=== PATIENT | male | born 1995 | race Asian ===

== ENCOUNTER 2023-08-27 01:54 | Emergency (ER) | payer BC ==
[~2023-08-27] VITALS: Ht 170.2 cm; Wt 76.6 kg
[2023-08-27 02:07] VITALS: O2SAT 96
[2023-08-27] MEDS ORDERED: DOXY100C5 MT (02:31)
[2023-08-27] MEDS: ACETAMINOPHEN 325MG TABLET PO ONE (02:50)
[2023-08-27 03:21] VITALS: BP 128/74; PULSE 90; RESP 18; TEMP 100.9
== END 2023-08-27 03:40 | disposition home or self-care (01) ==
LOC: ER 01:54
DX: J32.9 Chronic sinusitis, unspecified (principal); Z20.822 Contact with and (suspected) exposure to COVID-19
CPT/HCPCS: 71045; 87426; 87804; 99284